=== PATIENT | female | born 1955 | race Caucasian/White ===

== ENCOUNTER → 2018-07-10 | Outpatient (CLI) | payer OTHER ==
--- NOTE | 2018-07-10 17:34 | RAD ---
Indication: Pelvic pain and low back pain. TECHNIQUE: 2 views of the pelvis and 3 views of the lumbar spine COMPARISON: None FINDINGS: Pelvis: The hip joints are symmetric bilaterally without joint space narrowing or productive changes. SI joints within normal limits. Lumbar spine: There is very subtle dextroscoliosis of the lumbar spine. Lumbar spine demonstrates straightening. This could be due to muscle spasm or positioning. No compression deformities. There are 5 lumbar type vertebral bodies. Multilevel intervertebral disc space narrowing is seen. Endplate sclerosis and osteophyte formation. Mild lower lumbar spine facet arthropathy. IMPRESSION: Moderate multilevel degenerative disc disease. No acute compression deformities. Electronically signed by: Tae Duncan DO (07/10/2018 5:31 PM) [facility]
== END | disposition home or self-care (01) ==
LOC: DXRAD 16:48
PROVIDERS: ATTEND Specialist
DX: M51.36 Other intervertebral disc degeneration, lumbar region (principal); M25.78 Osteophyte, vertebrae; M12.88 Other specific arthropathies, not elsewhere classified, other specified site
CPT/HCPCS: 72100; 72170

== ENCOUNTER → 2018-10-18 | Outpatient (CLI) | payer BC ==
[~2018-10-18] MED LIST: 0.9 % SODIUM CHLORIDE 10 ML VIAL ONE; IOHEXOL 300 MG/ML 50 ML VIAL. ONE; LIDOCAINE 1% PF 30 ML VIAL. ONE; methylPREDNISolone ACETATE 40 MG/ML VIAL. ONE
== END | disposition home or self-care (01) ==
LOC: SURG 14:23
PROVIDERS: ATTEND Anesthesiology Pain Medicine
DX: M43.16 Spondylolisthesis, lumbar region (principal); M54.16 Radiculopathy, lumbar region; K21.9 Gastro-esophageal reflux disease without esophagitis; M19.90 Unspecified osteoarthritis, unspecified site; Z72.89 Other problems related to lifestyle; Z98.890 Other specified postprocedural states; Z79.899 Other long term (current) drug therapy
CPT/HCPCS: 62323; J1030; J2001; Q9967; 62321

== ENCOUNTER → 2021-01-11 | Outpatient (CLI) | payer BC ==
--- NOTE | 2021-01-14 10:13 | RAD ---
DATE: 01/11/2021 11:43 AM EXAM: MAMMO LORRI SCREENING BILATERAL HISTORY: Screening COMPARISON: 11/03/2019 Bilateral CC and MLO views of the breasts were performed. Bilateral breast tomosynthesis was performed in CC and MLO projections. This study was interpreted with the benefit of Computerized Aided Detection (CAD). FINDINGS: Breast Density: DENSE The breast Parenchyma is dense, which could reduce the sensitivity of mammography. Breast parenchyma level density D. Negative right mammogram. Left mammogram shows an 8mm focal asymmetry in the middle third slightly lateral breast best seen in the CC projection on tomographic views (image 29 of 60) but may also be present on image 48 of 66 on the MLO series. This could localize the lower-outer quadrant but needs additional imaging with full-field lateral view with tomographic imaging and targeted ultrasound of the lateral left breast. IMPRESSION: Left breast focal asymmetry, findings for which additional imaging is advised. BI-RADS CATEGORY: 0 INCOMPLETE: NEEDS ADDITIONAL IMAGING EVALUATION AND/OR PRIOR MAMMOGRAMS FOR COMPARISON. RECOMMENDED FOLLOW-UP: ADD ADDITIONAL IMAGING The patient will be contacted to return for additional imaging and a supplemental report will follow. PQRS compliance statement: Patient information was entered into a reminder system with a target due date for the next mammogram. Mammography is a sensitive method for finding small breast cancers, but it does not detect them all and is not a substitute for careful clinical examination. A negative mammogram does not negate a clinically suspicious finding and should not result in delay in biopsying a clinically suspicious abnormality. "Our facility is accredited by the [employer] Mammography [employer]."
== END ==
LOC: MAMMO 11:37
PROVIDERS: ATTEND Specialist
DX: Z12.31 Encounter for screening mammogram for malignant neoplasm of breast (principal); N64.89 Other specified disorders of breast
CPT/HCPCS: 77063; 77067

== ENCOUNTER → 2021-01-31 | Outpatient (CLI) | payer BC ==
--- NOTE | 2021-02-01 16:41 | RAD ---
Examination: 1. Left diagnostic mammogram 2. Limited left breast ultrasound INDICATION: 65-year-old woman recalled from screening for left breast focal asymmetry best seen on 3- D mammography (Reported on image 29 of 60 on the CC tomographic series and image 44 of 66 on the MLO tomographic series of 01/11/2021). COMPARISON: Screening mammogram of 01/11/2021, and 11/03/2019. TECHNIQUE: Full field left ML view was obtained with 2-D and 3-D technique and reviewed with computer -aided detection. In addition, targeted ultrasound of the upper outer quadrant left breast spanning t he 12 through 4:00 positions was performed. FINDINGS: Extremely dense breast parenchyma. A discrete mass is not apparent on the 3-D views obtained at this visit by dense tissue is apparent i n the posterior superior left breast, best illustrated on image 25 of 58 on the MLO view obtained thi s visit. Targeted ultrasound of the upper outer quadrant left breast did not reveal a sonographic correlate to the questioned asymmetry on 3-D mammography. This was not as apparent on the 2-D mammogram obtained at this visit either. IMPRESSION: Probably benign overlap of dense fibroglandular tissue. Recommend a six-month follow-up left diagnostic mammogram and targeted left breast ultrasound. BI-RADS Category 3 Probably benign findings Patient entered into a reminder system with targeted due date for next mammogram Electronically signed by: Tiffany Bowden MD (02/01/2021 4:38 PM) [id number]
== END ==
LOC: MAMMO 12:58
PROVIDERS: ATTEND Specialist
DX: R92.8 Other abnormal and inconclusive findings on diagnostic imaging of breast (principal)
CPT/HCPCS: 76641; 77065; G0279; 77061

== ENCOUNTER 2022-04-15 20:23 | Emergency (ER) | payer BC ==
[~2022-04-15] VITALS: Ht 165.1 cm; Wt 83.5 kg
--- NOTE | 2022-04-15 20:28 | PHYS DOC ---
Adult General HPI HPI Patient is a 66-year-old female with a past medical history of asthma, who presents with a chief complaint of shortness of breath that has been going on over the last month but worse over the last couple of days. States she is been using her albuterol inhaler little more than usual. Denies any recent traumas, travels, illnesses, fevers, chest pain, abdominal pain, nausea, vomiting, diarrhea. Denies any cold/flu/COVID symptoms. Denies any known ill contacts. States she is eating and drinking normally for her. States he is making urine and stool normally for her with no blood in either. Review of Systems Review of Systems Review of systems otherwise unremarkable except noted in HPI Physical Exam Physical Exam Constitutional: Well developed, well nourished, no acute distress, non-toxic appearance. [] HENT: Normocephalic, atraumatic, bilateral external ears normal, oropharynx moist, no oral exudates, nose normal. [] Eyes: PERRLA, EOMI, conjunctiva normal, no discharge. [] Neck: Normal range of motion, no tenderness, supple, no stridor. [] Cardiovascular:Heart rate regular rhythm, no murmur [] Lungs & Thorax: Mild bilateral end expiratory wheeze with no rhonchi, no tachypnea or hypoxia Abdomen: soft, no tenderness, no masses, no pulsatile masses. [] Skin: Warm, dry, no erythema, no rash. [] Back: No tenderness, no CVA tenderness. [] Extremities: No tenderness, no cyanosis, no clubbing, ROM intact, no edema. [] Neurologic: Alert and oriented X 3, normal motor function, normal sensory function, no focal deficits noted. [] Psychologic: Affect normal, judgement normal, mood normal. [] EKG EKG [] Radiology/Procedures Radiology/Procedures [] Heart Score C/O Chest Pain: No Risk Factors: Risk Factors: DM, Current or recent (<one month) smoker, HTN, HLP, family h istory of CAD, obesity. Risk Scores: Risk Factors: DM, Current or recent (<one month) smoker, HTN, HLP, family history of CAD, obesity. Course & Med Decision Making Course & Med Decision Making Patient is a 66-year-old female presents with asthma, who presents with shortness of breath worsening over the last month but especially over the last couple of days Vital signs nonconcerning. Physical exam noted above. EKG with a rate of 54, QRS 127, QTc of 435, no STEMI. Troponin normal. Chest x-ray nonconcerning. Given breathing treatment. Given steroids. On reassessment after treatments, patient was feeling better with good vital signs and ready to go home Discussed all findings with patient. Discussed management of asthma at home. Advised to follow-up next week with primary care physician Gave return precautions to the ED. Patient grateful, verbalized understanding and agreed with plan of discharge [] Dragon Disclaimer Dragon Disclaimer This electronic medical record was generated, in whole or in part, using a voice recognition dictation system. Departure Departure: Impression: Primary Impression: Asthma exacerbation Disposition: 01 HOME / SELF CARE / HOMELESS Condition: STABLE Referrals: KIMBERLY HARMON MD (PCP) Patient Instructions: Asthma Attacks, Prevention, Asthma, Adult Additional Instructions: Thank you for coming into the emergency department tonight and allowing us to take care of you. Please read the attached information carefully to go over things we discussed. Please continue using your albuterol inhaler as needed for cough and wheeze. Please continue taking your heartburn/GERD medications. Please follow-up next week with your primary care physician update on your ED visit and the status of your asthma. Please come back with new or concerning symptoms as we discussed. MARIANA BROWN MD April 15, 2022 20:28
[2022-04-15] MEDS ORDERED: DEXAMETHASONE 4 MG TABLET PO ONE (21:00)
[2022-04-15] MEDS ORDERED: IPRATRPIUM/ALBUTEROL 0.5/2.5MG 3 ML NEBU. NEB ONE (21:00)
[2022-04-15 21:11] VITALS: BP 135/94
--- NOTE | 2022-04-15 21:37 | RAD ---
XR CHEST 1V History: Reason: SOB / Spl. Instructions: / History: Comparison: None. Findings: No consolidation or pleural effusion. Normal heart size. No pneumothorax. Impression: 1. No acute cardiopulmonary process. Electronically signed by: Abram Mayo DO (04/15/2022 9:35 PM) [facility] [place]
== END 2022-04-15 22:07 | disposition home or self-care (01) ==
LOC: ER 20:23
DX: J45.901 Unspecified asthma with (acute) exacerbation (principal)
CPT/HCPCS: 36415; 71045; 84484; 93005; 94640; 99285; J8540